=== PATIENT | female | born 1975 | race Caucasian/White ===

== ENCOUNTER 2016-09-08 06:11 | Emergency (ER) | payer OTHER ==
[2016-09-08 06:12] VITALS: BP 105/67; PULSE 71; RESP 18; TEMP 97.6; O2SAT 100
[2016-09-08] MEDS ORDERED: FAMO1TAB37 PO (06:29)
[2016-09-08] MEDS ORDERED: LACTCAP8 PO (06:29)
[2016-09-08] MEDS ORDERED: ALUMINUM/MAGNESIUM/SIMETH 30 ML CUP PO ONE (06:45)
[2016-09-08] MEDS ORDERED: SODIUM CHLORIDE 0.9% FLUSH 10 ML FLUSH IV FLUSH PRN (06:45)
[2016-09-08] MEDS ORDERED: LIDOCAINE VISCOUS 2% SOLN 15 ML UDC PO ONE (06:45)
[2016-09-08 06:51] LABS: AUTOMATED NEUTROPHIL # 5.5 TH/MM3 (1.8-7.7); BASOPHIL % 0.3 % (0.0-2.0); EOSINOPHIL # 0.3 TH/MM3 (0-0.4); EOSINOPHIL % 2.8 % (0.0-4.0); HEMATOCRIT 37.9 % (35.0-46.0); HEMO FLAGS DIFF FINAL; LYMPH % 29.9 % (9.0-44.0); LYMPHOCYTE # 2.7 TH/MM3 (1.0-4.8); MEAN CELL VOLUME 83.4 FL (80.0-100.0); MEAN CORPUSCULAR HEMOGLOBIN 28.1 PG (27.0-34.0); MEAN CORPUSCULAR HGB CONC 33.7 % (32.0-36.0); MONO % 6.9 % (0.0-8.0); NEUT % 60.1 % (16.0-70.0); PLATELET COUNT 313 TH/MM3 (150-450); RED BLOOD COUNT 4.55 MIL/MM3 (4.00-5.30); RED CELL DISTRIBUTION WIDTH 13.1 % (11.6-17.2); WHITE BLOOD COUNT 9.1 TH/MM3 (4.0-11.0)
[2016-09-08 06:59] VITALS: O2SAT 100
[2016-09-08 07:00] VITALS: BP 99/68; PULSE 65; RESP 18; TEMP 98.1; O2SAT 100
[2016-09-08 07:04] LABS: ANION GAP 8 MEQ/L (5-15); AST (GOT) 11 U/L (15-37); BICARBONATE 24.4 MEQ/L (21.0-32.0); BLOOD UREA NITROGEN 10 MG/DL (7-18); CHLORIDE 107 MEQ/L (98-107); GLOMERULAR FILTRATION RATE 69 ML/MIN (>89); SODIUM (NA) 139 MEQ/L (136-145)
[2016-09-08 07:05] LABS: ALT (GPT) 15 U/L (10-53)
[2016-09-08 07:07] LABS: ALKALINE PHOSPHATASE 47 U/L (45-117); TOTAL BILIRUBIN ADULT 0.5 MG/DL (0.2-1.0)
[2016-09-08] MEDS ORDERED: MORPHINE SULFATE 4 MG/ML INJ IV PUSH ONE (07:45)
[2016-09-08] MEDS ORDERED: ONDANSETRON HCL 4 MG/2 ML VIAL IV PUSH ONE (07:45)
[2016-09-08] MEDS ORDERED: MORPHINE SULFATE 8 MG/ML INJ IV PUSH ONE (08:00)
--- NOTE | 2016-09-08 08:15 | PD ---
HPI Chief Complaint: Abdominal Pain Time Seen by Provider: 07:01 Travel History International Travel<30 days: No Contact w/Intl Traveler<30days: No Traveled to known affect area: No History of Present Illness HPI 41 year old female LMP 1 year ago complaining of burning abdominal pain, nausea , and vomiting for the past 2 hours. These episodes have been recurrent for the past 2 months. The abdominal pain is primarily in the epigastric region. The pain is aggravated with eating and mildly relieved with Pepcid, probiotics, and peptobismol. She reports occasional diarrhea but denies any blood in the vomit, blood in the stools, or melena. She also denies vaginal bleeding, dysuria, cough , and fever. PFSH Past Medical History Gastrointestinal Disorders: Yes (ULCER) Immunizations Current: Yes ?: Not LMP: 1 year ago : 2 Para: 2 Tubal Ligation: Yes Social History Alcohol Use: No Tobacco Use: No Substance Use: No Allergies-Medications (Allergen,Severity, Reaction): Coded Allergies: No Known Allergies (Unverified , 09/08/16) Reported Meds & Prescriptions Reported Meds & Active Scripts Active Zofran Odt (Ondansetron Odt) 4 Mg Tab 4 Mg SL Q6HR PRN Reported Pepcid (Famotidine) 20 Mg Tab 10 Mg PO BID Probiotic (Lactobacillus Acidophilus) 1 Cap Cap 1 Cap PO DAILY Review of Systems Except as stated in HPI: all other systems reviewed are Neg General / Constitutional: No: Fever, Chills, Weight Gain, Weight Loss, Other Eyes: No: Visual changes HENT: No: Headaches Cardiovascular: No: Chest Pain or Discomfort Respiratory: No: Shortness of Breath Gastrointestinal: Positive: Nausea, Vomiting, Diarrhea, Abdominal Pain, No: Hematemesis, Hematochezia, Constipation Genitourinary: No: Dysuria, Hematuria Musculoskeletal: No: Pain Skin: No Rash Neurologic: No: Weakness Psychiatric: No: Depression Endocrine: No: Polydipsia Hematologic/Lymphatic: No: Easy Bruising Physical Exam Narrative GENERAL: Well-developed well-nourished, no obvious distress. SKIN: Warm and dry. HEAD: Atraumatic. Normocephalic. EYES: Pupils equal and round. No scleral icterus. No injection or drainage. ENT: No nasal bleeding or discharge. Mucous membranes pink and moist. NECK: Trachea midline. No JVD. CARDIOVASCULAR: Regular rate and rhythm. RESPIRATORY: No accessory muscle use. Clear to auscultation. Breath sounds equal bilaterally. GASTROINTESTINAL: Abdomen soft, non-tender, nondistended. Hepatic and splenic margins not palpable. No rebound no percussive tenderness, no CVA tenderness. MUSCULOSKELETAL: Extremities without clubbing, cyanosis, or edema. No obvious deformities. NEUROLOGICAL: Awake and alert. No obvious cranial nerve deficits. Motor grossly within normal limits. Five out of 5 muscle strength in the arms and legs. Normal speech. PSYCHIATRIC: Appropriate mood and affect; insight and judgment normal. Data Data Last Documented VS Vital Signs Date Time Temp Pulse Resp B/P Pulse Ox O2 Delivery O2 Flow Rate FiO2 09/08/16 07:00 98.1 65 18 99/68 100 Room Air Orders Complete Blood Count With Diff (09/08/16 06:40) Comprehensive Metabolic Panel (09/08/16 06:40) Lipase (09/08/16 06:40) Iv Access Insert/Monitor (09/08/16 06:40) Ecg Monitoring (09/08/16 06:40) Oximetry (09/08/16 06:40) Sodium Chloride 0.9% Flush (Ns Flush) (09/08/16 06:45) Al-Mag Hy-Si 40-40-4 Mg/Ml Liq (Mag-Al P (09/08/16 06:45) Lidocaine 2% Viscous (Xylocaine 2% Visco (09/08/16 06:45) Ed Urine Pregnancytest Poc (09/08/16 07:34) Urinalysis - C+S If Indicated (09/08/16 07:34) Morphine Inj (Morphine Inj) (09/08/16 07:45) Ondansetron Inj (Zofran Inj) (09/08/16 07:45) Morphine Inj (Morphine Inj) (09/08/16 08:00) Ed Poc Ultrasound (09/08/16 ) Labs Laboratory Tests Test 09/08/16 09/08/16 06:42 08:17 White Blood Count 9.1 TH/MM3 Red Blood Count 4.55 MIL/MM3 Hemoglobin 12.8 GM/DL Hematocrit 37.9 % Mean Corpuscular Volume 83.4 FL Mean Corpuscular Hemoglobin 28.1 PG Mean Corpuscular Hemoglobin 33.7 % Concent Red Cell Distribution Width 13.1 % Platelet Count 313 TH/MM3 Mean Platelet Volume 7.8 FL Neutrophils (%) (Auto) 60.1 % Lymphocytes (%) (Auto) 29.9 % Monocytes (%) (Auto) 6.9 % Eosinophils (%) (Auto) 2.8 % Basophils (%) (Auto) 0.3 % Neutrophils # (Auto) 5.5 TH/MM3 Lymphocytes # (Auto) 2.7 TH/MM3 Monocytes # (Auto) 0.6 TH/MM3 Eosinophils # (Auto) 0.3 TH/MM3 Basophils # (Auto) 0.0 TH/MM3 CBC Comment DIFF FINAL Differential Comment Sodium Level 139 MEQ/L Potassium Level 3.0 MEQ/L Chloride Level 107 MEQ/L Carbon Dioxide Level 24.4 MEQ/L Anion Gap 8 MEQ/L Blood Urea Nitrogen 10 MG/DL Creatinine 0.90 MG/DL Estimat Glomerular Filtration 69 ML/MIN Rate Random Glucose 94 MG/DL Calcium Level 9.1 MG/DL Total Bilirubin 0.5 MG/DL Aspartate Amino Transf 11 U/L (AST/SGOT) Alanine Aminotransferase 15 U/L (ALT/SGPT) Alkaline Phosphatase 47 U/L Total Protein 7.8 GM/DL Albumin 4.1 GM/DL Lipase 258 U/L Urine Color YELLOW Urine Turbidity HAZY Urine pH 8.0 Urine Specific [place] 1.009 Urine Protein NEG mg/dL Urine Glucose (UA) NEG mg/dL Urine Ketones NEG mg/dL Urine Occult Blood SMALL Urine Nitrite NEG Urine Bilirubin NEG Urine Urobilinogen LESS THAN 2.0 MG/DL Urine Leukocyte Esterase NEG Urine RBC 1 /hpf Urine WBC 2 /hpf Urine Squamous Epithelial 4 /hpf Cells Urine Mucus FEW /lpf Microscopic Urinalysis Comment CULT NOT INDICATED MDM Medical Decision Making Medical Screen Exam Complete: Yes Emergency Medical Condition: Yes Differential Diagnosis Epigastric pain, peptic ulcer disease, GERD, pancreatitis, acute abdomen highly unlikely, gallbladder disease. Narrative Course Patient roomed emergency department, labs are reassuring, as given a GI cocktail and not feeling better, was offered morphine and she declined. She was given Zofran she started to feel better. Symptoms more concerning with gastritis considering her history peptic ulcer disease is a reasonable concern as well. 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 Discussed continuing to call to get an earlier appointment discussed return to ED criteria and symptomatic management home. Discussed foods to avoid. Procedures Procedure Narrative Bedside ultrasound: Views obtained of the right upper quadrant shows no gallbladder wall thickening, no pericholecystic fluid, ultrasonographic Neves sign negative, no gallstones seen. Diagnosis Primary Impression: Epigastric abdominal pain Additional Impression: Nausea & vomiting Med/Other Pt SpecificInfo: Prescription(s) given Scripts Ondansetron Odt (Zofran Odt)4 Mg Tab4 Mg SL Q6HR PRN (Nausea/Vomiting) #30 TAB Ref 0 Prov:Fernando Fowler MD 09/08/16 Disposition: DISCHARGE HOME Condition: Stable Fernando Fowler MD Sep 08, 2016 08:15
[2016-09-08 08:57] LABS: BLOOD, URINE SMALL (NEG); GLUCOSE,URINE NEG (NEG); KETONE, URINE NEG (NEG); MUCUS URINE FEW /lpf (OCC); NITRITE,URINE NEG (NEG); SQUAMOUS EPITHELIAL CELL URINE 4 /hpf (0-5); URINE COLOR YELLOW (YELLW/STRAW)
[2016-09-08 08:58] LABS: COMMENT (UR) CULT NOT INDICATED; CULTURE IF INDICATED CULT NOT INDICATED
[2016-09-08] MEDS ORDERED: ZOFR4TAB3 SL (09:13)
== END 2016-09-08 09:51 | disposition home or self-care (01) ==
LOC: NEPE 06:11
DX: R10.13 Epigastric pain (principal); R11.2 Nausea with vomiting, unspecified; Z79.899 Other long term (current) drug therapy
CPT/HCPCS: 80053; 81001; 83690; 84703; 85025; 96374; 96375; 99285; J2405